=== PATIENT | female | born 1950 | race Caucasian/White ===

== ENCOUNTER 2022-10-31 08:11 | Emergency (ER) | payer MEDICARE, BC, SELFPAY ==
[2022-10-31 08:14] VITALS: BP 138/83; PULSE 99; RESP 16; TEMP 36.4; O2SAT 96; BMI 24.4
--- NOTE | 2022-10-31 08:27 | ED.GENADULT ---
HPI - General Adult General Time Seen by Provider: : Date Seen: 10/31/22 Chief complaint: Insect Bite Stated complaint: bee/wasps stings Time Seen by Provider: 10/31/22 08:21 Source: patient Mode of arrival: ambulatory Limitations: no limitations History of Present Illness HPI narrative: Patient is a pleasant 71-year-old female has a history of hypertension and hypercholesterolemia who is on meds for these, presents after she got bitten by bees yesterday while doing some gardening. She apparently got into a nest. This sounds almost more like a wasps like bite, she has bites on her and swelling of her quarter-size area in her hand forearms 1 on her left cheek, she reports she has 1 in her hairline and has not had any difficulty with shortness of breath, mouth or tongue swelling. She has had no history of relapse allergic reactions any bites in the past. She has report reports mostly that she is itching. Related Data Home Medications Medication Instructions Recorded Confirmed amlodipine 5 mg tablet 2.5 mg PO QPM 10/31/22 10/31/22 atorvastatin 20 mg tablet 20 mg PO QPM 10/31/22 10/31/22 ergocalciferol (vitamin D2) 1,250 1,250 mcg PO Q2W 10/31/22 10/31/22 mcg (50,000 unit) capsule lisinopril 40 mg tablet 40 mg PO DAILY 10/31/22 10/31/22 multivitamin with iron .ROUTE 10/31/22 Previous Rx's Medication Instructions Recorded prednisone 20 mg tablet 20 mg PO BID #6 tabs 10/31/22 Allergies Allergy/AdvReac Type Severity Reaction Status Date / Time No Known Drug Allergies Allergy Verified 10/31/22 08:19 Review of Systems Status of ROS: Reports: 6 or more systems reviewed and unremarkable except as noted in History and below PFSH PFS Social History Smoking Status: Former smoker Do you use any of these nicotine containing products: None Second hand tobacco smoke exposure: No How often do you have a drink containing alcohol: never AUDIT-C Alcohol total score: 0 Non-prescribed substance use: denies use service: No Exam Narrative: Exam Narrative: Objective: Vital signs unremarkable including O2 sat 96%, afebrile In general patient apparent distress talks in even unlabored sentences noncyanotic HEENT shows a welt under her left eye that is consistent with a bee bite with reaction Several dime to quarter size bites over her forearm hand bilaterally. No difficulty breathing Good peripheral perfusion noted Patient is ambulatory without difficulty No known nuchal rigidity Const: Vital Signs, click to edit/add: Vital Signs - 24 hr 10/31/22 08:14 Temperature 97.5 F L Pulse Rate [Pulse Oximeter] 99 Respiratory Rate 16 Blood Pressure [Ri ght Upper Arm] 138/83 Pulse Oximetry 96 Oxygen Delivery Me thod Room Air Course Vital Signs Vital signs: Initial Vital Signs Temperature 97.5 F L 10/31/22 08:14 Temperature Source Temporal Artery Scan 10/31/22 08:14 Pulse Rate 99 10/31/22 08:14 Respiratory Rate 16 10/31/22 08:14 Blood Pressure 138/83 10/31/22 08:14 Blood Pressure Mean 101 10/31/22 08:14 Blood Pressure Position Sitting 10/31/22 08:14 Pulse Oximetry 96 10/31/22 08:14 Oxygen Delivery Method Room Air 10/31/22 08:14 Vital Signs Temperature 97.5 F L 10/31/22 08:14 Pulse Rate 99 10/31/22 08:14 Respiratory Rate 16 10/31/22 08:14 Blood Pressure 138/83 10/31/22 08:14 Pulse Oximetry 96 10/31/22 08:14 Oxygen Delivery Method Room Air 10/31/22 08:14 Temperature 97.5 F L 10/31/22 08:14 Pulse Rate 99 10/31/22 08:14 Respiratory Rate 16 10/31/22 08:14 Blood Pressure 138/83 10/31/22 08:14 Pulse Oximetry 96 10/31/22 08:14 Oxygen Delivery Method Room Air 10/31/22 08:14 Medical Decision Making MDM Narrative Medical decision making narrative: Patient describes multiple insect bites, probably wasp bites. The patient has multiple typical reactions to wasps sting. Does appear to be anaphylactic. At this point I would give her prednisone 50 mg now and then Benadryl 25 mg orally, would continue Benadryl 25 t.i.d. over the next 3 days, continue prednisone 20 b.i.d. for the next 3 days. She can return to the ED any trouble with breathing tongue swelling or other concern. She has this happened yesterday so I think she is stable at this time to go home. Her vital signs look reassuring. She has a ride home. Return as described above thanks Discharge Plan Discharge Clinical Impression: Insect bite Patient Disposition: Home w/ Parent or Adult Condition: Stable Additional Instructions: Prednisone 2 times a day for the next 3 days starting tomorrow, use Benadryl 3 times a day for the next 3 days. Benadryl can be sedating so be careful not to be on ladders or do any driving. Recommend return to the ED if any trouble with her mouth breathing or other concerns. Activity Level: Light activity Discharge Diet: Regular Prescriptions: New prednisone 20 mg tablet 20 mg PO BID Qty: 6 0RF No Action atorvastatin 20 mg tablet 20 mg PO QPM amlodipine 5 mg tablet 2.5 mg PO QPM ergocalciferol (vitamin D2) 1,250 mcg (50,000 unit) capsule 1,250 mcg PO Q2W lisinopril 40 mg tablet 40 mg PO DAILY multivitamin with iron .ROUTE Stand Alone Forms: M/A-COM Info Instructions
[2022-10-31] MEDS: predniSONE 10 MG TABLET 50 MG PO (08:38)
[2022-10-31] MEDS: diphenhydrAMINE 25 MG CAPSULE PO (08:39)
== END 2022-10-31 08:43 | disposition home or self-care (01) ==
PROVIDERS: Emergency Provider Family Medicine; PCP Family Medicine
DX: T63.441A Toxic effect of venom of bees, accidental (unintentional), initial encounter (principal)
CPT/HCPCS: 99283; A9270; J7512